=== PATIENT | female | born 1990 | race Caucasian/White ===

== ENCOUNTER 2025-04-29 17:57 | Emergency (ER) | payer MEDICAID ==
[~2025-04-29] VITALS: Ht 167.6 cm; Wt 82.0 kg
[2025-04-29 18:00] VITALS: O2SAT 99
[2025-04-29] MEDS ORDERED: DEXAMETHASONE 10 MG/ML VIAL PO ONE (19:15)
[2025-04-29] MEDS ORDERED: DIPHENHYDRAMINE 50MG CAPSULE PO ONE (19:15)
[2025-04-29] MEDS: PROCHLORPERAZINE MALEATE 10MG TABLET PO ONE (20:12)
[2025-04-29] MEDS: DIPHENHYDRAMINE 25MG CAPSULE PO SCH (20:12)
[2025-04-29] MEDS: LORAZEPAM 1MG TABLET PO ONE (20:12)
[2025-04-29] MEDS: SUMATRIPTAN SUCCINATE 6MG/0.5ML VIAL SUBCUT ONE (20:12)
[2025-04-29 20:52] LABS: BASOPHILS % 0.7 % (0.0-2.0); EOSINOPHILS % 0.3 % (0.0-5.0); HEMATOCRIT. 38.0 % (36.0-48.0); HEMOGLOBIN. 12.6 g/dL (12.0-16.0); LYMPHOCYTES % 21.6 % (20.0-50.0); MEAN PLATELET VOLUME 7.7 fl (7.4-10.4); MONOCYTES % 6.9 % (2.0-8.0); NEUTROPHILS % 70.5 % (40.0-76.0); PLATELET 323 x1000/uL (130-400); RED BLOOD CELL COUNT 4.58 mill/uL (4.2-5.4); RED CELL DISTRIBUTION WIDTH 13.8 % (11.6-14.6)
[2025-04-29 21:02] LABS: HCG SCREEN NEGATIVE
[2025-04-29 21:05] LABS: CREATININE 0.8 mg/dL (0.6-1.0)
[2025-04-29 21:06] LABS: TROPONIN I HIGH SENSITIVITY < 4 ng/L (3.0-34); UREA NITROGEN BLOOD 9 mg/dL (9-23)
[2025-04-29 21:07] LABS: ASPARTATE AMINOTRANSFERASE 17 IU/L (<34)
[2025-04-29 21:08] LABS: BILIRUBIN DIRECT 0.2 mg/dL (<=3.0); BILIRUBIN TOTAL 0.6 mg/dL (0.1-1.0); PROTEIN TOTAL 7.3 g/dL (6.0-8.3)
[2025-04-29] MEDS ORDERED: HYDR50TA55 MT (21:30)
[2025-04-29] MEDS: DEXAMETHASONE 10 MG/ML VIAL PO NR (21:51)
[2025-04-29] MEDS: DEXAMETHASONE 1 MG/ML ORAL SYR PO ONE (21:52)
[2025-04-29 22:32] VITALS: BP 135/90; PULSE 74; RESP 14; TEMP 37.6; O2SAT 99
== END 2025-04-29 22:33 | disposition home or self-care (01) ==
LOC: ER 17:57
DX: F41.0 Panic disorder [episodic paroxysmal anxiety] (principal); F41.9 Anxiety disorder, unspecified; R07.89 Other chest pain; R06.02 Shortness of breath; R51.9 Headache, unspecified; Z88.6 Allergy status to analgesic agent
CPT/HCPCS: 99284; 71045; 80076; 80048; 84703; 85025; 84484; 36415; 96372; Q0163; Q0164; J8540; J3030; J1100